=== PATIENT | female | born 1990 | race Caucasian/White ===

== ENCOUNTER 2018-01-02 05:12 | Emergency (ER) | payer BC ==
[2018-01-02] MEDS ORDERED: NS 0.9% 1000 ML* 1,000 ML IV ONE (05:33)
[2018-01-02] MEDS ORDERED: Metoprolol Succinate XL TAB* 50 MG PO ONE (06:03)
[2018-01-02] MEDS ORDERED: Metoprolol Tartrate IV* 1 MG/ML 5 ML VIAL IV ONE (06:03)
[2018-01-02 06:08] LABS: ABS Basophils 0.1 10^3/ul (0-0.2); ABS Eosinophils 0.1 10^3/ul (0-0.6); ABS Lymphocytes 1.8 10^3/ul (1.0-4.8); ABS Monocytes 0.7 10^3/ul (0-0.8); ABS Neutrophils 6.5 10^3/ul (1.5-7.7); ABS Nucleated RBC 0 10^3/ul; Eosinophil % 0.7 % (0-6); Hematocrit 42 % (35-47); Hemoglobin 13.9 g/dl (12.0-16.0); Lymphocyte % 19.6 % (25-47); Mean Corpuscular HGB Conc 33 g/dl (31-36); Mean Corpuscular Hemoglobin 29 pg (27-31); Mean Corpuscular Volume 86 fL (80-97); Mean Platelet Volume 8.8 um3 (7.4-10.4); Nucleated Red Blood Cells % 0; Platelet Count 272 10^3/ul (150-450); Red Blood Count 4.86 10^6/ul (4.0-5.4); Red Cell Distribution Width 14 % (10.5-15); White Blood Count 9.1 10^3/ul (3.5-10.8)
--- NOTE | 2018-01-02 07:05 | ED ---
Kiersten Avelar Gabriel, scribed for Brody Espinal MD on 01/02/18 at 0530 . Palpitations / Dysrhythmia - HPI Summary HPI Summary: This patient is a 27 year old F presenting to [facility] accompanied by her partner with a chief complaint of palpitations that began yesterday. The patient rates the pain 7/10 in severity. Patient reports burning sensation in her neck. She denies CP and SOB. Pt has SVT and is on metoprolol 25mg once a day. - History of Current Complaint Chief Complaint: EDDysrhythmPalp Time Seen by Provider: 01/02/18 05:23 Hx Obtained From: Patient Onset/Duration: Lasting Days, Still Present Timing: Constant Severity Initially: Moderate Severity Currently: Moderate Character: Irregular Associated Signs & Symptoms: Negative - CP and SOB - Allergy/Home Medications Allergies/Adverse Reactions: Allergies Allergy/AdvReac Type Severity Reaction Status Date / Time oxycodone [From Percocet] Allergy GI Upset Verified 01/02/18 05:22 PMH/Surg Hx/FS Hx/Imm Hx Endocrine/Hematology History: Reports: Hx Thyroid Disease Cardiovascular History: Reports: Hx Supraventricular Ventricular Tachycardia Musculoskeletal History: Denies: Hx Congenital Bone Abnormalities, Hx Gout Psychiatric History: Denies: Hx Schizophrenia - Surgical History Surgery Procedure, Year, and Place: THYROID BIOPY. LEFT PARTIAL OOPHERECTOMY. T&A Infectious Disease History: No Infectious Disease History: Denies: Traveled Outside the [place] in Last 30 Days - Family History Known Family History: Positive: Hypertension Negative: Respiratory Disease, Seizure Disorder - Social History Occupation: Employed Full-time Alcohol Use: Occasionally Substance Use Type: Reports: None Smoking Status (MU): Never Smoked Tobacco Review of Systems Positive: Palpitations. Negative: Chest Pain Negative: Shortness Of Breath Neurological: Other - burning sensation in neck All Other Systems Reviewed And Are Negative: Yes Physical Exam - Summary Physical Exam Summary: Appearance: Well appearing, no pain distress, anxious Skin: warm, dry, reflects adequate perfusion Head/face: normal Eyes: EOMI, [place] ENT: normal Neck: supple, non-tender Respiratory: CTA, breath sounds present Cardiovascular: tachcyardci, pulses symmetrical Abdomen: non-tender, soft Bowel Sounds: present Musculoskeletal: normal, strength/ROM intact, no TTP in the area of back discomfort Neuro: normal, sensory motor intact, A&Ox3 O2 sat is 100% on room air Triage Information Reviewed: Yes Vital Signs On Initial Exam: Initial Vitals Temp Pulse Resp BP Pulse Ox 98.8 F 142 20 185/101 100 01/02/18 05:21 01/02/18 05:21 01/02/18 05:21 01/02/18 05:21 01/02/18 05:21 Vital Signs Reviewed: Yes Diagnostics - Vital Signs Vital Signs Temp Pulse Resp BP Pulse Ox 01/02/18 05:21 98.8 F 142 20 185/101 100 - Laboratory Lab Results: Lab Results 01/02/18 01/02/18 01/02/18 Range/Units 05:48 05:48 05:48 WBC 9.1 (3.5-10.8) 10^3/ul RBC 4.86 (4.0-5.4) 10^6/ul Hgb 13.9 (12.0-16.0) g/dl Hct 42 (35-47) % MCV 86 (80-97) fL MCH 29 (27-31) pg MCHC 33 (31-36) g/dl RDW 14 (10.5-15) % Plt Count 272 (150-450) 10^3/ul MPV 8.8 (7.4-10.4) um3 Neut % (Auto) 71.4 (38-83) % Lymph % (Auto) 19.6 L (25-47) % Antelope % (Auto) 7.6 H (0-7) % Eos % (Auto) 0.7 (0-6) % Baso % (Auto) 0.7 (0-2) % Absolute Neuts (auto) 6.5 (1.5-7.7) 10^3/ul Absolute Lymphs (auto) 1.8 (1.0-4.8) 10^3/ul Absolute Monos (auto) 0.7 (0-0.8) 10^3/ul Absolute Eos (auto) 0.1 (0-0.6) 10^3/ul Absolute Basos (auto) 0.1 (0-0.2) 10^3/ul Absolute Nucleated RBC 0 10^3/ul Nucleated RBC % 0 D-Dimer, Quantitative < 200 (Less Than 230) ng/mL Sodium 138 L (139-145) mmol/L Potassium 4.1 (3.5-5.0) mmol/L Chloride 109 (101-111) mmol/L Carbon Dioxide 21 L (22-32) mmol/L Anion Gap 8 (2-11) mmol/L BUN 13 (6-24) mg/dL Creatinine 0.78 (0.51-0.95) mg/dL Est GFR ( Amer) 115.7 (>60) Est GFR (Non-Af Amer) 90.0 (>60) BUN/Creatinine Ratio 16.7 (8-20) Glucose 133 H (70-100) mg/dL Lactic Acid (0.5-2.0) mmol/L Calcium 9.5 (8.6-10.3) mg/dL Total Bilirubin 0.20 (0.2-1.0) mg/dL AST 18 (13-39) U/L ALT 22 (7-52) U/L Alkaline Phosphatase 84 (34-104) U/L Troponin I 0.00 (<0.04) ng/mL Total Protein 7.2 (6.4-8.9) g/dL Albumin 4.4 (3.2-5.2) g/dL Globulin 2.8 (2-4) g/dL Albumin/Globulin Ratio 1.6 (1-3) TSH 1.25 (0.34-5.60) mcIU/mL Thyroxine (T4) 12.73 H (6.09-12.23) mcg/mL 01/02/18 Range/Units 05:48 WBC (3.5-10.8) 10^3/ul RBC (4.0-5.4) 10^6/ul Hgb (12.0-16.0) g/dl Hct (35-47) % MCV (80-97) fL MCH (27-31) pg MCHC (31-36) g/dl RDW (10.5-15) % Plt Count (150-450) 10^3/ul MPV (7.4-10.4) um3 Neut % (Auto) (38-83) % Lymph % (Auto) (25-47) % Antelope % (Auto) (0-7) % Eos % (Auto) (0-6) % Baso % (Auto) (0-2) % Absolute Neuts (auto) (1.5-7.7) 10^3/ul Absolute Lymphs (auto) (1.0-4.8) 10^3/ul Absolute Monos (auto) (0-0.8) 10^3/ul Absolute Eos (auto) (0-0.6) 10^3/ul Absolute Basos (auto) (0-0.2) 10^3/ul Absolute Nucleated RBC 10^3/ul Nucleated RBC % D-Dimer, Quantitative (Less Than 230) ng/mL Sodium (139-145) mmol/L Potassium (3.5-5.0) mmol/L Chloride (101-111) mmol/L Carbon Dioxide (22-32) mmol/L Anion Gap (2-11) mmol/L BUN (6-24) mg/dL Creatinine (0.51-0.95) mg/dL Est GFR ( Amer) (>60) Est GFR (Non-Af Amer) (>60) BUN/Creatinine Ratio (8-20) Glucose (70-100) mg/dL Lactic Acid 2.2 H* (0.5-2.0) mmol/L Calcium (8.6-10.3) mg/dL Total Bilirubin (0.2-1.0) mg/dL AST (13-39) U/L ALT (7-52) U/L Alkaline Phosphatase (34-104) U/L Troponin I (<0.04) ng/mL Total Protein (6.4-8.9) g/dL Albumin (3.2-5.2) g/dL Globulin (2-4) g/dL Albumin/Globulin Ratio (1-3) TSH (0.34-5.60) mcIU/mL Thyroxine (T4) (6.09-12.23) mcg/mL Result Diagrams: 01/02/18 05:48 01/02/18 05:48 Lab Statement: Any lab studies that have been ordered have been reviewed, and results considered in the medical decision making process. - Radiology CXR Radiology Interpretation Completed By: ED Physician - negative - EKG 0509 Cardiac Rate: Tachycardia EKG Rhythm: Sinus Tachycardia - at [address] Segment: Non-Specific EKG Interpretation: normal axis, normal intervals Re-Evaluation - Re-Evaluation First Eval Change: Improved - HR 75, BP 145. Pt asymptomatic. Course/Dx - Course Course Of Treatment: Pt with recurring tachycardia. No evidence for anything but sinus tach tonight. Has cardiology f.u and on toprol xl. Tx with beta blockers here. No CP or SOB. RA sat is 100%. Cant PERC due to control implant. TSH normal but T4 up. Has had this before, following with endocrine. Will have her call both specialists today to f/u. - Diagnoses Differential Diagnosis/HQI/PQRI: Positive: AV Block, Hyperventilation, Myocarditis, Panic Disorder, Paroxymal SVT, Pericarditis, Pulmonary Embolism Provider Diagnoses: Palpitations, Sinus tachycardia, Hypertension Discharge - Sign-Out/Discharge Documenting (check all that apply): Discharge - Discharge Plan Condition: Good Disposition: HOME Patient Education Materials: Heart Palpitations (ED) Forms: *Work Release Referrals: Elizabeth Ogden MD [Primary Care Provider] - Additional Instructions: Call me at 7pm tonight to review thyroid studies. Drink plenty of fluids. Avoid caffeine, alcohol. Get plenty of rest Return with chest pain, shortness of breath, new symptoms or other concerns as discussed. Call Dr. Montgomery today to follow up AND your software applications developer to investigate your hypertension. The documentation as recorded by the Kiersten mcdaniel Gabriel accurately reflects the service I personally performed and the decisions made by me, Brody Espinal MD.
[2018-01-02 07:19] VITALS: BP 148/98
--- NOTE | 2018-01-02 07:47 | RAD ---
Indication: Palpitations. Single frontal view of the chest performed at 03 21 was reviewed. Comparison is made with previous exam dated September 25, 2017. No mediastinal shift is noted. Heart is of normal size and configuration. Lung cortés appear clear. IMPRESSION: NO ACTIVE CARDIOPULMONARY DISEASE IS NOTED.
== END 2018-01-02 07:18 | disposition home or self-care (01) ==
LOC: ED 05:12
DX: R00.2 Palpitations (principal); I10 Essential (primary) hypertension; E07.9 Disorder of thyroid, unspecified; I47.1 Supraventricular tachycardia
CPT/HCPCS: 36415; 71045; 80053; 83605; 84436; 84443; 84484; 85025; 85379; 93005; 96360; 96374; 99282; A9270-GY; J3490

== ENCOUNTER 2018-05-12 09:29 | Emergency (ER) | payer BC ==
--- NOTE | 2018-05-12 10:36 | UC ---
Respiratory Complaint HPI - HPI Summary HPI Summary: 28 yo female presents with sinus pain/pressure/congestion and dry cough for the last 2 weeks. Has been taking OTC medications with mild relief at first, but no longer helping. She also mentions some intermittent dizziness at times, but thinks this is related to her sinuses. She does have a hx of SVT and is on metoprolol and followed by cards for this - last appt was 3 weeks ago and WNL per pt. Denies fever, chills, SOB, chest pain, palpitations, abdominal pain, n/ v. - History of Current Complaint Chief Complaint: UCGeneralIllness Stated Complaint: COUGH Time Seen by Provider: 05/12/18 10:35 Hx Obtained From: Patient Hx Last Menstrual Period: 05/12/18 Onset/Duration: Gradual Onset Severity Currently: None Pain Intensity: 0 Character: Cough: Nonproductive - Allergies/Home Medications Allergies/Adverse Reactions: Allergies Allergy/AdvReac Type Severity Reaction Status Date / Time oxycodone [From Percocet] AdvReac GI Upset Verified 05/12/18 10:18 Home Medications: Home Medications Dapsone [Aczone] 60 gm TP DAILY 05/12/18 [History Confirmed 05/12/18] Dm/PE/Acetaminophen/Chlorphenr [[place] Plus Cold &] 1 cap PO ONCE [History Confirmed 05/12/18] Tazarotene [Tazorac] 30 gm TP DAILY 05/12/18 [History Confirmed 05/12/18] PMH/Surg Hx/FS Hx/Imm Hx - Additional Past Medical History Additional PMH: Acne SVT - Surgical History Surgical History: Yes Surgery Procedure, Year, and Place: THYROID BIOSPY 2018. LEFT PARTIAL OOPHERECTOMY 2011. T&A as a kid - Family History Known Family History: Positive: Hypertension Negative: Respiratory Disease, Seizure Disorder - Social History Occupation: Employed Full-time Lives: With Family Alcohol Use: Occasionally Substance Use Type: None Smoking Status (MU): Never Smoked Tobacco - Immunization History Hx Tetanus, Diphtheria Vaccination: Yes Review of Systems Constitutional: Negative Skin: Negative Eyes: Negative ENT: Nasal Discharge, Sinus Congestion, Sinus Pain/Tenderness Respiratory: Cough Cardiovascular: Negative Gastrointestinal: Negative Neurovascular: Negative Neurological: Negative Psychological: Negative All Other Systems Reviewed And Are Negative: Yes Physical Exam - Summary Physical Exam Summary: GENERAL: NAD. WDWN. No pain distress. SKIN: No rashes, sores, lesions, or open wounds. HEENT: Head: AT/NC Eyes: EOM intact. Conjunctiva clear without inflammation or discharge. Ears: Hearing grossly normal. TMs intact, no bulging, erythema, or edema. Nose: Nasal mucosa mildly swollen and erythematous with yellow/ clear discharge. TTP maxillary and frontal sinus. Throat: Posterior oropharynx without exudates, erythema, or tonsillar enlargement. Uvula midline. NECK: Supple. Nontender. No lymphadenopathy. CHEST: CTAB. No r/r/w. No accessory muscle use. Breathing comfortably and in no distress. CV: RRR. Without m/r/g. Pulses intact. NEURO: Alert. CN II-XII grossly intact. PSYCH: Age appropriate behavior. Triage Information Reviewed: Yes Vital Signs: Initial Vital Signs Temp 99 F 05/12/18 10:21 Pulse 83 05/12/18 10:21 Resp 18 05/12/18 10:21 BP 145/101 05/12/18 10:21 Pulse Ox 100 05/12/18 10:21 Vital Signs Reviewed: Yes Diagnostic Evaluation - Laboratory O2 Sat by Pulse Oximetry: 100 Respiratory Course/Dx - Course Course Of Treatment: Sinusitis. Bronchitis - Differential Dx/Diagnosis Provider Diagnoses: Sinusitis. Bronchitis Discharge - Sign-Out/Discharge Documenting (check all that apply): Patient Departure All imaging exams completed and their final reports reviewed: No Studies - Discharge Plan Condition: Stable Disposition: HOME Prescriptions: Amoxicillin/Clavulanate TAB* [Augmentin TAB 875*] 875 mg PO BID #20 tab Benzonatate CAP* [Tessalon 100 MG CAP*] 100 mg PO TID PRN #21 cap PRN Reason: Cough Codeine Phosphate/Guaifenesin [Guaifen-Codeine 100-10 mg/5 ml] 5 ml PO BEDTIME PRN #35 ml MDD 5mL PRN Reason: Cough Patient Education Materials: Sinusitis (ED) Referrals: Elizabeth Ogden MD [Primary Care Provider] - Additional Instructions: If you develop a fever, shortness of breath, chest pain, new or worsening symptoms - please call your PCP or go to the ED. Your blood pressure was high at todays visit. Please see your primary provider within 4 weeks for recheck and re-evaluation. - Billing Disposition and Condition Condition: STABLE Disposition: Home
[2018-05-12 10:38] VITALS: BP 138/90
== END 2018-05-12 10:52 | disposition home or self-care (01) ==
LOC: UCEAST 09:29
DX: J32.9 Chronic sinusitis, unspecified (principal); J40 Bronchitis, not specified as acute or chronic
CPT/HCPCS: 99212; G0463

== ENCOUNTER 2019-12-06 19:13 | Emergency (ER) | payer BC ==
--- OUTSIDE RECORDS SUMMARY | 2019-12-06 19:49 | XMS REPORT | Continuity of Care Document ---
:1990 External Reference #:[id number] Author Name Himanshu Campbell CNM Address [address] [place] [address] Care Team Providers Name Role Phone Marian Lopez MD - Family Medicine Care Team Information Bibliographic Services Specialist Problems Active Problems Provider Date Endometriosis (clinical) Celena Cano MD Onset: 06/30/2019 Social History Type Date Description Comments Sex Unknown Tobacco Use Start: Unknown Never Smoked Cigarettes ETOH Use Occasionally consumes alcohol Recreational Drug Use Denies Drug Use Tobacco Use Start: Unknown Patient has never smoked Smoking Status Reviewed: 08/27/19 Patient has never smoked Exercise Type/Frequency Exercises regularly Seat Belt/Car Seat Always uses seat belt Allergies, Adverse Reactions, Alerts Active Allergies Reaction Severity Comments Date Percocet 10/14/2017 Bee Sting 10/14/2017 Medications Active Medications SIG Qnty Indications Ordering Provider Date Liletta (52 MG) Placed 08/27/2019 Celena Cano, 08/27/2019 19.5mcg/Day IUD Zyrtec Allergy Unknown Multivitamin Adult Unknown Probiotic Acidophilus Unknown Aczone Unknown Medications Administered in Office Medication SIG Qnty Indications Ordering Provider Date PT SCRN Tbco Id as Non User Himanshu Campbell CNM 10/28/2019 Injection PT SCRN Tbco Id as Non User Celena aCno MD 07/06/2019 Injection PT SCRN Tbco Id as Non User Celena Cano MD 11/19/2017 Injection PT SCRN Tbco Id as Non User Celena Cano MD 10/14/2017 Injection Immunizations Description No Information Available Vital Signs Date Vital Result Comment 10/28/2019 2:04pm BP Systolic 110 mmHg BP Diastolic 66 mmHg Height 61 inches 5'1" Weight 200.00 lb BMI (Body Mass Index) 37.8 kg/m2 0 Parity 0 08/27/2019 2:56pm BP Systolic 124 mmHg BP Diastolic 78 mmHg Height 61 inches 5'1" Weight 203.00 lb BMI (Body Mass Index) 38.4 kg/m2 0 Results Test Acquired Date Facility Test Result H/L Range Note Laboratory test 07/06/2019 [facility] Cytology SEE RESULT 1 , [address] [place] [address] BELOW [phone] 1 [id number] 2 SEE RESULT BELOW Name: SIL LOZA Torsten : [address]: Celena Cano MD Acct: [id number] Unit: [id number] AGE: 29 Location: [facility] Re07/06/19 SEX: F Status: REG REF SPEC: [id number] AD: 07/06/[address] [facility] [address]: Celena Cano MD REQ: [id number] RECD: 07/06/191978 STATUS: REECE MCLEAN DR: Marian Lopez MD _ ORDERED: TP IMAGE ANALYS COMMENTS: [id number] FINAL DIAGNOSIS Negative for Intraepithelial lesion or Malignancy SPECIMEN(S) RECEIVED A. Ectocervical/Endocervical CYTOLOGY ADEQUACY Specimen Adequacy: Satisfactory of evaluation Transformation zone component identified CYTOLOGY PATIENT INFORMATION Patient Information: HPV: Thin Layer Pap Test w/reflex to high risk HPV RNA testing when ASCUS Actual Specimen Date: 07/06/19 LMP If Unknown: unknown-Nexplanon Signed by and Reported on: CHAITANYA Shukla (ASCP) [id number] This Pap test was evaluated with the assistance of the [employer] Test Imaging System. Due to cytologic findings at the jewel hole gauger microscope, comprehensive manual rescreening by a Anthropological Linguist may be required. The Pap Smear is a screening test designed to aid in the detection of premalignant and malignant conditions of the uterine cervix. It is not a diagnostic procedure and should not be used as the sole means of detecting cervical cancer. Both false- positive and false- negative reports do occur. Depending on your risk status, a Pap smear should be obtained and evaluated every 1-3 years. END OF REPORT DEPARTMENT OF PATHOLOGY, [address] [place] [address] Sheldon Burkett M.D. Director [facility] # [id number] Procedures Date Code Description Status 08/27/2019 09540 Insert Intrauterine Device Completed 08/27/2019 53956 Remove Contraceptive Capsule Completed Medical Devices Description No Information Available Encounters Type Date Location Provider Dx Diagnosis Office Visit 10/28/2019 [facility] Himanshu Campbell Z30.431 Encounter for routine 2:15p CNM checking of intrauterine contracep dev Office Visit 07/06/2019 [facility] Celena Cano, Z01.411 Encntr for yield analyst exam 10:00a (general) (routine) w abnormal findings N80.1 Endometriosis of ovary E28.2 Polycystic ovarian syndrome N94.12 Deep dyspareunia N39.41 Urge incontinence N93.8 Other specified abnormal uterine and vaginal bleeding Z13.0 Encntr screen for dis of the bld/bld-form org/immun mechnsm Assessments Date Code Description Provider 10/28/2019 Z30.431 Encounter for routine checking of intrauterine Himanshu Campbell CNM contraceptive device 08/27/2019 N93.8 Other specified abnormal uterine and vaginal Celena Cano MD bleeding 08/27/2019 Z30.430 Encounter for insertion of intrauterine Celena Cano MD contraceptive device 07/06/2019 Z01.411 Encounter for gynecological examination Celena Cano MD (general) (routine) with abnormal findings 07/06/2019 N80.1 Endometriosis of ovary Celena Cano MD 07/06/2019 E28.2 Polycystic ovarian syndrome Celena Cano MD 07/06/2019 N94.12 Deep dyspareunia Celena Cano MD 07/06/2019 N39.41 Urge incontinence Celena Cano MD 07/06/2019 N93.8 Other specified abnormal uterine and vaginal Celena Cano MD bleeding 07/06/2019 Z13.0 Encounter for screening for diseases of the Celena Cano MD blood and blood-forming organs and certain disorders involving the immune mechanism Plan of Treatment 10/28/2019 - Himanshu Campbell, CNMZ30.431 Encounter for routine checking of intrauterine contraceptive deviceComments:Return for annual exam or call sooner for problems. I encourage you to do a string check approximately monthly. Functional Status Description No Information Available Mental Status Description No Information Available Referrals Description No Information Available
[2019-12-06 20:01] VITALS: BP 144/117
[2019-12-06] MEDS ORDERED: Ondansetron ODT TAB* 4 MG PO ONE (20:20)
[2019-12-06] MEDS ORDERED: oxyCODONE/Acetamin 5/325 MG* TAB PO ONE (20:20)
[2019-12-06] MEDS ORDERED: HYDROcodone/ACETAMIN 5-325 MG* 1 TAB PO ONE ×2 (20:31→21:01)
--- NOTE | 2019-12-06 20:34 | UC ---
Complaint Female HPI - HPI Summary HPI Summary: 29 y/o F p/w R flank pain. Pain began in her lower back this am, now radiating to her R flank. Feels like a stabbing pain. No vaginal pain, discharge or bleeding. Has IUD. No fevers. No hx kidney stones, does have fam hx of kidney problems. - History Of Current Complaint Chief Complaint: UCBackPain Stated Complaint: URINARY, FLANK/PELVIC PAIN, FEVER Time Seen by Provider: 12/06/19 19:52 Hx Last Menstrual Period: 05/12/18 Onset/Duration: Sudden Onset Timing: Intermittent Severity Currently: Moderate Pain Intensity: 7 Character: Sharp Aggravating Factor(s): Movement Associated Signs And Symptoms: Negative: Vaginal Bleeding/Discharge, Vaginal Discharge - Allergies/Home Medications Allergies/Adverse Reactions: Allergies Allergy/AdvReac Type Severity Reaction Status Date / Time codeine Allergy Agitation Verified 12/06/19 19:53 oxycodone [From Percocet] AdvReac GI Upset Verified 12/06/19 19:53 Home Medications: Home Medications Dapsone [Aczone] 60 gm TP DAILY 05/12/18 [History Confirmed 12/06/19] Tazarotene [Tazorac] 30 gm TP DAILY 05/12/18 [History Confirmed 12/06/19] Levonorgestrel (Iud) [Kyleena IUD] 1 dose VAGINAL ONCE 12/06/19 [History Confirmed 12/06/19] Ondansetron ODT TAB* [Zofran 4 MG Odt TAB*] 4 mg PO Q8H PRN 4 Days #12 tab.odt 12/06/19 [Rx] Propranolol 20 mg TAB [Inderal 20 mg TAB] 20 mg PO ONCE PRN 12/06/19 [History Confirmed 12/06/19] oxyCODONE/Acetamin 5/325 MG* [Percocet 5/325 TAB*] 1 tab PO Q6H PRN 3 Days #12 tab MDD 4 12/06/19 [Rx] PMH/Surg Hx/FS Hx/Imm Hx Cardiovascular History: Other - SVT GI/ History: Other - endometriosis - Surgical History Surgical History: Yes Surgery Procedure, Year, and Place: THYROID BIOSPY 2017. LEFT PARTIAL OOPHERECTOMY 2011. T&A as a kid. cardiac ablation May 2018 - Family History Known Family History: Positive: Hypertension Negative: Respiratory Disease, Seizure Disorder - Social History Alcohol Use: Occasionally Substance Use Type: None Smoking Status (MU): Never Smoked Tobacco - Immunization History Hx Tetanus, Diphtheria Vaccination: Yes Review of Systems All Other Systems Reviewed And Are Negative: Yes Genitourinary: Negative: Dysuria, Hematuria, Frequency, Vaginal/Penile Discharge , Vaginal/Penile Pain, Vaginal/Penile Tenderness, Abnormal Bleeding Musculoskeletal: Positive: Myalgia Physical Exam - Summary Physical Exam Summary: Constitutional: Well-developed, Well-nourished, Alert. (-) Distressed Skin: Warm, Dry HENT: Normocephalic; Atraumatic Eyes: Conjunctiva normal Neck: Musculoskeletal ROM normal neck. (-) JVD, (-) Stridor Cardio: Rhythm regular, rate normal, Heart sounds normal; Intact distal pulses; Radial pulses are 2+ and symmetric. (-) Murmur Pulmonary/Chest wall: Effort normal. (-) Respiratory distress, (-) Wheezes, (-) Rales Abd: Soft, (-) tenderness, (-) Distension, (-) Guarding, (-) Rebound Musculoskeletal: (-) Edema, L Flank tenderness. Neuro: Alert, Oriented x3 Psych: Mood and affect Normal Vital Signs: Initial Vital Signs Temp 36.5 C 12/06/19 19:56 Pulse 92 12/06/19 19:56 Resp 16 12/06/19 19:56 BP 144/117 12/06/19 19:56 Pulse Ox 100 12/06/19 19:56 Diagnostics - Radiology CT a/p Radiology Interpretation Completed By: Radiologist Summary of Radiographic Findings: Distal right ureteral calculus approximately 1 cm above the UVJ measuring 2-3 mm in size with obstructive uropathy of the right upper tract. 2. Otherwise negative CT abdomen/pelvis. Complaint Female Dx - Course Course Of Treatment: 29 y/o F p/w R flank pain. - PE w R flank tenderness, no abd tenderness or lower quadrant tenderness. No fevers. UA w blood. Check CT for stone - CT shows R 3 mm stone at UVJ w mild hydronephrosis. No bacteria in UA, NO fevers. Tolerating PO. Given pain control and zofran. Given urology follow up. - Differential Dx/Diagnosis Provider Diagnosis: Kidney stone, Hydronephrosis Discharge ED - Sign-Out/Discharge Documenting (check all that apply): Patient Departure All imaging exams completed and their final reports reviewed: Yes - Discharge Plan Condition: Stable Disposition: HOME Prescriptions: Ondansetron ODT TAB* [Zofran 4 MG Odt TAB*] 4 mg PO Q8H PRN 4 Days #12 tab.odt PRN Reason: Nausea/Vomiting oxyCODONE/Acetamin 5/325 MG* [Percocet 5/325 TAB*] 1 tab PO Q6H PRN 3 Days #12 tab MDD 4 PRN Reason: Pain Patient Education Materials: Kidney Stones (ED) Referrals: Marian Lopez MD [Primary Care Provider] - 2 Days Connor Gr MD [Medical Doctor] - 1 Day (call office tomorrow.) Additional Instructions: You were seen at urgent care for right-sided flank pain. Your CT scan shows a right sided 3 mm kidney stone. It is causing slight swelling in your kidney. Because of its size it should pass. You can take Percocet for severe pain. please call the urology office tomorrowy stone with hydronephrosis. If any lab work or imaging was not completed at the time of discharge, you will be called with any relevant results. Please seek medical attention or go to the emergency department for any fevers, worsening or concerning symptoms. Please follow up with your primary care doctor in 2-3 days. It was a pleasure taking care of you today. - Billing Disposition and Condition Condition: STABLE Disposition: Home
== END 2019-12-06 21:27 | disposition home or self-care (01) ==
LOC: UCCORT 19:13
DX: N20.0 Calculus of kidney (principal); N13.30 Unspecified hydronephrosis; N80.9 Endometriosis, unspecified; Z88.5 Allergy status to narcotic agent
CPT/HCPCS: 74176; 81003; 84702; 99213; A9270-GY; G0463

== ENCOUNTER 2022-05-16 12:32 | Inpatient (IN) ==
[2022-05-16] MEDS ORDERED: Magnesium Sulfate OB PREMIX 4 GM/100 ML BAG IV ONE (12:35)
[2022-05-16] MEDS ORDERED: Calcium Gluconate 1 GM/10 ML VIAL (in Pyxis) IV PUSH PRN (12:35)
[2022-05-16] MEDS ORDERED: Lactated Ringers 1000 ml BAG 1,000 ML IV ONE (12:35)
[2022-05-16] MEDS ORDERED: Buffered Lidocaine 1% SYRIN 1 ml INTRADERM ONE (12:35)
[2022-05-16] MEDS ORDERED: Labetalol IV 5 MG/ML 20 ml VIAL IV PUSH ONE ×3 (12:57→13:46)
[2022-05-16] MEDS ORDERED: Lactated Ringers 1000 ml BAG 1,000 ML IV SCH (13:00)
[2022-05-16] MEDS ORDERED: Magnesium Sulfate OB PREMIX 40 GM/1,000 ML BAG IVPB SCH (13:00)
[2022-05-16 13:12] LABS: ABS Basophils 0.1 10^3/ul (0-0.2); ABS Lymphocytes 1.7 10^3/ul (1.0-4.8); ABS Neutrophils 8.9 10^3/ul (1.5-7.7); Eosinophil % 0.4 %; Hematocrit 44 % (35-47); Hemoglobin 14.6 g/dL (12.0-16.0); Lymphocyte % 14.5 %; Mean Corpuscular HGB Conc 34 g/dL (31-36); Mean Corpuscular Hemoglobin 29 pg (27-31); Mean Corpuscular Volume 87 fL (80-97); Mean Platelet Volume 10.8 fL (7.4-10.4); Platelet Count 202 10^3/uL (150-450); Red Blood Count 5.02 10^6 /uL (3.70-4.87); Red Cell Distribution Width 14 % (10-15); White Blood Count 11.8 10^3/uL (3.5-10.8)
[2022-05-16 13:18] LABS: Platelet Count 206 10^3/ul (150-450)
[2022-05-16 13:19] LABS: Urine Appearance Clear; Urine Bilirubin Negative (Negative); Urine Blood 1+ (Small) (Negative); Urine Color Straw; Urine Glucose Negative (Negative); Urine Ketones Negative (Negative); Urine Nitrite Negative (Negative); Urine Protein 3+ (>=300 mg/dL) (Negative); Urine Urobilinogen 0.2 (Negative) (Negative); Urine pH 6.5 (5.0-9.0)
[2022-05-16 13:24] LABS: Urine Bacteria Absent (Absent); Urine Benzodiazepine Screen None Detected (None Detect); Urine Cannabinoids Screen None Detected (None Detect); Urine Opiates Screen None Detected (None Detect); Urine Red Blood Cell Trace(0-2/hpf) (Absent); Urine Squamous Epithelial Cell Present (Absent); Urine White Blood Cell Trace(0-5/hpf) (Absent)
[2022-05-16 13:25] LABS: Fibrinogen 425.8 mg/dL (110.8-404.3)
[2022-05-16 14:00] LABS: Albumin 2.5 g/dL (3.2-5.2); Albumin/Globulin Ratio 1.1 (1-3); Calcium 9.1 mg/dL (8.6-10.3); Globulin 2.2 g/dL (2-4); Potassium 4.5 mmol/L (3.5-5.0); Total Bilirubin 0.2 mg/dL (0.2-1.0); Total Protein 4.7 g/dL (6.4-8.9); Uric Acid 7.3 mg/dL (2.3-6.6); eGFR CKD-EPI 120.5 (>60)
[2022-05-16 14:03] LABS: Schistocytes ABSENT
[2022-05-16] MEDS ORDERED: hydrALAZINE 20 mg/ml 1 ML Vial IV IV SLOW PU ONE ×2 (14:19→14:37)
[2022-05-16] MEDS ORDERED: Labetalol 300 mg TAB PO ONE (14:48)
== END 2022-05-16 15:27 | disposition short-term general hospital (02) | DRG 566 ==
LOC: MCHOBOUT 12:32 → MCHOB 13:01
PROVIDERS: ADMIT Obstetrics & Gynecology; ATTEND Obstetrics & Gynecology